=== PATIENT | male | born 1990 | race African-American/Black ===

== ENCOUNTER 2017-05-15 10:40 | Emergency (ER) | payer SELFPAY ==
[2017-05-15 10:44] VITALS: TEMP 98; BMI 24.3
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
[2017-05-15] MEDS ORDERED: SODIUM CHLORIDE 0.9% 1000 ML INFUS.BAG IV ONE (10:58)
[2017-05-15] MEDS ORDERED: DIPHTH,PERTUSS(ACELL),TET 0.5 ML DISP.SYRIN IM ONE (10:58)
[2017-05-15 11:09] LABS: BASOPHIL 0.2 % (0-2.0); MCHC 34.1 g/dl (32.0-35.9); MEAN CELL VOLUME 96.7 fl (80-96); MEAN PLT VOLUME 8.5 fl (7.5-11.1); NEUTROPHILS 87.3 % (42.8-82.8); PLATELET COUNT 179 K/MM3 (134-434); RDW 13.1 % (11.9-15.9); WHITE BLOOD COUNT 16.1 K/mm3 (4.0-10.0)
[2017-05-15 11:29] LABS: INR 1.18 (0.82-1.09)
[2017-05-15 11:31] LABS: ACTIVATED PTT 31.6 SECONDS (26.9-34.4)
[2017-05-15 11:37] LABS: ALBUMIN 4.4 g/dl (3.4-5.0); ALK PHOS 98 U/L (45-117); ANION GAP 12 (8-16); BILIRUBIN,TOTAL 0.9 mg/dL (0.2-1.0); CO2 24 mmol/L (21-32); CREATININE 0.9 mg/dL (0.7-1.3); GLUCOSE,RANDOM 108 mg/dL (74-106); MAGNESIUM 2.2 mg/dL (1.8-2.4); SGOT/AST 69 U/L (15-37); SGPT/ALT 44 U/L (12-78); TOT PROT 7.7 g/dl (6.4-8.2)
[2017-05-15 12:01] LABS: URINE APPEARANCE CLOUDY; URINE BILIRUBIN NEGATIVE (NEGATIVE); URINE BLOOD 3+ (NEGATIVE); URINE COLOR YELLOW; URINE GLUCOSE (UA) NEGATIVE (NEGATIVE); URINE KETONE TRACE (NEGATIVE); URINE LEUK ESTERASE TRACE (NEGATIVE); URINE NITRITE NEGATIVE (NEGATIVE); URINE UROBILINOGEN NEGATIVE mg/dL (0.2-1.0)
[2017-05-15 12:02] LABS: URINE PROTEIN 2+ (NEGATIVE)
[2017-05-15 12:10] LABS: URINE BACTERIA RARE /hpf (NONE SEEN); URINE HYALINE CAST 17 /lpf; URINE MUCUS MANY; URINE RBC 1 /hpf (0-3); URINE WBC 22 /hpf (3-5)
[2017-05-15 13:15] LABS: URINE MARIJUANA THC POSITIVE ng/ml (CUTOFF=50)
[2017-05-15] MEDS ORDERED: CEPHALEXIN MONOHYDRATE 500 MG CAPSULE (UD) PO ONE (16:26)
[2017-05-15] MEDS ORDERED: CEPHALEXIN MONOHYDRATE 250 MG CAPSULE (FP) ONE (16:30)
[2017-05-15 16:59] VITALS: BP 127/70; PULSE 85
== END 2017-05-15 16:59 | disposition home or self-care (01) ==
LOC: JER 10:40
PROC: 0CQ03ZZ Repair Upper Lip, Percutaneous Approach (ICD-10-PCS; principal; 2017-05-15)
PROC: 3E0234Z Introduction of Serum, Toxoid and Vaccine into Muscle, Percutaneous Approach (ICD-10-PCS; 2017-05-15)
PROC: 3E033NZ Introduction of Analgesics, Hypnotics, Sedatives into Peripheral Vein, Percutaneous Approach (ICD-10-PCS; 2017-05-15)
DX: S02.2XXA Fracture of nasal bones, initial encounter for closed fracture (principal); S01.511A Laceration without foreign body of lip, initial encounter; S00.03XA Contusion of scalp, initial encounter; S00.83XA Contusion of other part of head, initial encounter; H11.33 Conjunctival hemorrhage, bilateral; Y04.2XXA Assault by strike against or bumped into by another person, initial encounter; Y93.89 Activity, other specified; Y92.59 Other trade areas as the place of occurrence of the external cause; Y99.8 Other external cause status
CPT/HCPCS: 36415; 70450-TC; 70486-TC; 71010-TC; 71260-TC; 72125-TC; 74177-TC; 80053; 80307; 81003; 81015; 83735; 85025; 85610; 85730; 86850; 86900; 86901; 90715; 99285-25

== ENCOUNTER 2017-05-17 11:59 | Emergency (ER) | payer SELFPAY ==
[2017-05-17 12:05] VITALS: BP 146/64; PULSE 74; TEMP 98.2; BMI 21.2
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
== END 2017-05-17 13:11 | disposition home or self-care (01) ==
LOC: JERFT 11:59
DX: Z09 Encounter for follow-up examination after completed treatment for conditions other than malignant neoplasm (principal)
CPT/HCPCS: 99281-25

== ENCOUNTER 2017-05-21 14:08 | Emergency (ER) | payer SELFPAY ==
[2017-05-21 14:14] VITALS: BP 132/74; PULSE 66; TEMP 98; BMI 22.0
[2017-05-21] MEDS ORDERED: IBUPROFEN 600 MG TABLET (FP) PO ONE ×2 (15:21→15:22)
--- NOTE | 2017-05-21 15:26 | PDOC ---
Suture Removal/Wound Check HPI - History of Present Illness Chief Complaint: Suture/Staple Removal(Here) Stated Complaint: SUTURE/STAPLE REMOVAL/eye irritation Time Seen by Provider: 05/21/17 14:54 History Source: Yes: Patient Exam Limitations: Yes: No Limitations Treated at: [facility] ED - Previous ED Treatment Type of procedure performed on last visit: Yes: Laceration Repair Tetanus Immunization: Yes: Up to Date - Onset of Previous Treatment Date of Occurence: 05/14/17 Comment:: 05/21/17 15:25 Removal of frenulum laceration repair. Denies any pain, drainage, or evidence of infection. Is continuing his Keflex as prescribed. Also concerned about persistent and worsening redness to bilateral eyes, worse on the left than the right. Was diagnosed with some conjunctival hemorrhage and uveitis at time of injury 5 days ago but states family is concerned. Denies visual changes, denies drainage, denies any recurrent injury. Past History - Travel Traveled outside of the country in the last 30 days: No Close contact w/someone who was outside of country & ill: No - Past Medical History Allergies/Adverse Reactions: Allergies Allergy/AdvReac Type Severity Reaction Status Date / Time No Known Allergies Allergy Verified 05/21/17 14:14 Home Medications: Ambulatory Orders Cephalexin [Keflex] 500 mg PO QID #28 capsule 05/15/17 Other medical history: denies - Immunization History Immunization Up to Date: Yes - Suicide/Smoking/Psychosocial Hx Smoking History: Current some day smoker Number of Cigarettes Smoked Daily: 2 Information on smoking cessation initiated: Yes 'Breaking Loose' booklet given: 05/21/17 Hx Alcohol Use: Yes (occasional) Drug/Substance Use Hx: No Substance Use Type: None Lives with/in: parents Suture Removal/Wound Check PE - Physical Exam Laceration/Wound Check Symptoms: reports: None Current Severity Level: None Maximum Severity Level: None Pain Localization: None Location of Laceration/Wound: bilateral: Eye (bilateral subconjunctival hemorrhages with traumatic iritis, visual acuity within normal limits, PERRL) *Review of Systems - Review of Systems Able to Perform ROS?: Yes Constitutional: Yes: Symptoms Reported, See HPI. No: Fever, Loss of Appetite, Malaise HEENTM: Yes: Symptoms Reported, See HPI, Other (redness, mild photophobia). No : Eye Pain, Blurred Vision, Tearing, Recent change in vision Respiratory: No: Symptoms reported Integumentary: Yes: Symptoms Reported, See HPI Neurological: Yes: Symptoms reported All Other Systems: Reviewed and Negative Medical Decision Making - Medical Decision Making 05/21/17 15:37 Suture removal with good wound approximation. Patient has residual some conjunctival hemorrhages with mild iritis him trauma. Reinforced need for rest and NSAIDs. 05/21/17 15:39 *DC/Admit/Observation/Transfer Diagnosis at time of Disposition: Visit for suture removal, Iritis, traumatic Subconjunctival hematoma Qualifiers: Laterality: bilateral Qualified Code(s): H11.33 - Conjunctival hemorrhage, bilateral - Discharge Dispostion Disposition: HOME Condition at time of disposition: Stable Admit: No - Referrals Referrals: Bart Mensah MD [Staff Physician] - - Patient Instructions Printed Discharge Instructions: DI for Suture Removal, DI for Anterior Uveitis Additional Instructions: Continue using ibuprofen 2 or 3 tablets of 200 mg Rest, Avoid strenuous activity or heavy lifting until symptoms resolve To up with lumber bearer Wednesday or Wednesday if symptoms worsen or continue
== END 2017-05-21 15:32 | disposition home or self-care (01) ==
LOC: JERFT 14:08
DX: Z48.02 Encounter for removal of sutures (principal)
CPT/HCPCS: 99281-25